=== PATIENT | female | born 2000 | race Two or more races ===

== ENCOUNTER 2024-08-12 13:55 | Emergency (ER) | payer MEDICAID ==
[~2024-08-12] VITALS: Ht 154.9 cm; Wt 81.6 kg
[2024-08-12 13:59] VITALS: BP 129/84; TEMP 37.1; O2SAT 99
[2024-08-12 14:03] VITALS: PULSE 62; RESP 18; O2SAT 100
[2024-08-12 15:04] LABS: CHLORIDE 104 mEq/L (98-107); POTASSIUM 3.9 mEq/L (3.5-5.1); SODIUM 137 mEq/L (136-145)
[2024-08-12 15:05] LABS: CARBON DIOXIDE 25 mEq/L (21-32)
[2024-08-12 15:06] LABS: CALCIUM 9.5 mg/dL (8.7-10.4)
[2024-08-12 15:09] LABS: BASOPHILS % 0.1 % (0.0-2.0); EOSINOPHILS % 0.2 % (0.0-5.0); HEMATOCRIT. 41.1 % (36.0-48.0); HEMOGLOBIN. 13.5 g/dL (12.0-16.0); LYMPHOCYTES % 25.7 % (20.0-50.0); MEAN CORPUSCULAR HEMOGLOBIN 29.1 pg (28.0-32.0); MEAN CORPUSCULAR HGB CONC 32.9 g/dL (31.0-37.0); MEAN CORPUSCULAR VOLUME 88.2 fL (81.0-99.0); MONOCYTES % 8.6 % (2.0-8.0); NEUTROPHILS % 65.4 % (40.0-76.0); PLATELET 262 x1000/uL (130-400); RED BLOOD CELL COUNT 4.66 mill/uL (4.2-5.4)
[2024-08-12 15:10] LABS: CREATININE 0.6 mg/dL (0.6-1.0); GLUCOSE 85 mg/dL (70-105)
[2024-08-12 15:11] LABS: UREA NITROGEN BLOOD 5 mg/dL (9-23)
[2024-08-12 15:27] LABS: B-HCG QUANTITATIVE 1052 mIU/mL (<6)
== END 2024-08-12 16:17 | disposition left against medical advice (07) ==
LOC: ER 13:55
DX: M54.6 Pain in thoracic spine (principal); Z53.21 Procedure and treatment not carried out due to patient leaving prior to being seen by health care provider
CPT/HCPCS: 36415; 80048; 84702; 85025; 86850; 86900